=== PATIENT | female | born 1975 | race Two or more races ===

== ENCOUNTER 2017-11-16 16:56 | Inpatient (IN) | payer MEDICAID ==
[~2017-11-16] VITALS: Ht 167.6 cm; Wt 135.9 kg
[2017-11-16] MEDS ORDERED: PANTOPRAZOLE 40 MG/10 ML VIAL IV STA (17:23)
[2017-11-16] MEDS ORDERED: SODIUM CHLORIDE 0.9% 1,000 ML IVB ONE (17:23)
[2017-11-16] MEDS ORDERED: ONDANSETRON HCL 4 MG/2 ML VIAL IV ONE (17:30)
[2017-11-16] MEDS ORDERED: MORPHINE SULFATE 4 MG/ML SYR/VIAL IV ONE (17:30)
[2017-11-16 18:02] LABS: Basophils # (auto) 0 uL; Eosinophils # (auto) 0 uL; Eosinophils % (auto) 0.2 % (0.0-7.0); Lymphocytes # (auto) 1.1 uL; Monocytes # (auto) 0.5 uL
[2017-11-16 18:04] LABS: Basophils % (auto) 0.3 % (0.0-2.0); Hematocrit 31.9 % (36.0-46.0); Hemoglobin 9.8 g/dL (12.2-16.2); Lymphocytes % (auto) 7.9 % (10.0-50.0); Mean Corpuscular Hemoglobin 19.1 pg (28.0-32.0); Mean Corpuscular Hgb Conc. 30.6 g/dL (32.0-36.0); Mean Corpuscular Volume 62.4 fL (80.0-100.0); Monocytes % (auto) 3.4 % (0.0-12.0); Neutrophils % (auto) 88.2 % (37.0-80.0); Platelet Count (auto) 358 10^3/uL (140-450); Red Blood Cells 5.11 10^6/uL (4.0-5.20); Red Cell Distribution Width 18.6 % (11.8-14.3); White Blood Cell 13.6 10^3/uL (4.4-10.8)
[2017-11-16 18:21] LABS: Albumin 3.6 g/dL (3.4-5.0); BUN/Creatinine Ratio 28.8; Calcium 8.2 mg/dL (8.5-10.1); Magnesium 2.3 mg/dL (1.6-2.6); Potassium 3.7 mmol/L (3.5-5.1)
[2017-11-16 18:24] LABS: Bilirubin, Total 0.3 mg/dL (0.2-1.0); Total Protein 7.9 g/dL (6.4-8.2)
[2017-11-16 18:44] LABS: Urine Amorphous Crystal FEW /hpf (None Seen); Urine Bacteria NONE SEEN /hpf (None Seen); Urine Blood Negative /uL (Negative); Urine Mucus FEW (None Seen); Urine Specific Gravity 1.033 (1.001-1.035); Urine WBC 1 /hpf (0 - 5)
[2017-11-16] MEDS: SODIUM CHLORIDE 0.9% 1,000 ML IV SCH (18:49)
[2017-11-16] MEDS ORDERED: LORazepam 2MG/ML-1ML VIAL IV PRN (19:00)
[2017-11-16] MEDS ORDERED: NITROGLYCERIN 0.4 MG SL TAB SL PRN (19:00)
[2017-11-16] MEDS ORDERED: cefTRIAXone 1GM/10ml IVPUSH 10 ML IV ONE (19:00)
[2017-11-16] MEDS ORDERED: MORPHINE SULFATE 4 MG/ML SYR/VIAL IV PRN ×2 (19:00)
[2017-11-16] MEDS: FAMOTIDINE (10MG/ML) 2ML VL IV SCH (19:03)
[2017-11-16] MEDS: PROMETHAZINE HCL 25 MG/ML 1ML IV PRN (21:46)
[2017-11-16] MEDS: LABETALOL HCL 5 MG/ML ML 20ML VIAL IV PRN (21:47)
[2017-11-16] MEDS: MORPHINE SULFATE 4 MG/ML SYR/VIAL IV PRN (21:48)
[2017-11-17] MEDS: metroNIDAZOLE 500MG/100ML 100 ML IV SCH ×4 (00:30→17:54)
[2017-11-17] MEDS: LABETALOL HCL 5 MG/ML ML 20ML VIAL IV PRN (00:55)
[2017-11-17 05:00] VITALS: BP 149/72
[2017-11-17] MEDS: SODIUM CHLORIDE 0.9% 1,000 ML IV SCH ×2 (05:05→14:49)
[2017-11-17] MEDS: FAMOTIDINE (10MG/ML) 2ML VL IV SCH ×2 (05:05→19:26)
[2017-11-17] MEDS: MORPHINE SULFATE 4 MG/ML SYR/VIAL IV PRN ×3 (05:12→17:54)
[2017-11-17 05:57] LABS: Basophils # (auto) 0 uL; Basophils % (auto) 0.1 % (0.0-2.0); Eosinophils # (auto) 0 uL; Lymphocytes # (auto) 1.4 uL
[2017-11-17 05:59] LABS: Hematocrit 30.4 % (36.0-46.0); Hemoglobin 9.1 g/dL (12.2-16.2); Lymphocytes % (auto) 9.6 % (10.0-50.0); Mean Corpuscular Volume 63.3 fL (80.0-100.0); Monocytes # (auto) 1.1 uL; Monocytes % (auto) 7.4 % (0.0-12.0); Neutrophils # (auto) 11.9 uL; Neutrophils % (auto) 82.9 % (37.0-80.0); Platelet Count (auto) 346 10^3/uL (140-450); Red Cell Distribution Width 18.1 % (11.8-14.3); White Blood Cell 14.4 10^3/uL (4.4-10.8)
[2017-11-17 06:18] LABS: Albumin 3.2 g/dL (3.4-5.0); Amylase 38 U/L (25-115); BUN/Creatinine Ratio 27.1; Bilirubin, Total 0.4 mg/dL (0.2-1.0); Calcium 8.2 mg/dL (8.5-10.1); Cholesterol 135 mg/dL (< 200); HDL Cholesterol 46 mg/dL (40-59); LDL Cholesterol 85 mg/dL (< 100); Lipase 170 U/L (73-393); Potassium 3.9 mmol/L (3.5-5.1); Total Protein 7.5 g/dL (6.4-8.2); Triglycerides 103 mg/dL (< 150)
[2017-11-17 09:00] VITALS: BP 137/75
[2017-11-17] MEDS: PROMETHAZINE HCL 25 MG/ML 1ML IV PRN (10:01)
[2017-11-17] MEDS: cefTRIAXone 1GM/10ml IVPUSH 10 ML IV SCH (10:01)
[2017-11-17 13:00] VITALS: BP 141/79
[2017-11-17 17:00] VITALS: BP 159/85
[2017-11-17 20:00] VITALS: BP 111/54
[2017-11-18] MEDS: metroNIDAZOLE 500MG/100ML 100 ML IV SCH ×4 (00:08→18:22)
[2017-11-18] MEDS: SODIUM CHLORIDE 0.9% 1,000 ML IV SCH ×3 (00:56→20:49)
[2017-11-18 05:00] VITALS: BP 130/65
[2017-11-18 05:32] LABS: Basophils # (auto) 0 uL; Eosinophils # (auto) 0 uL; Eosinophils % (auto) 0.2 % (0.0-7.0); Monocytes # (auto) 1.8 uL; Neutrophils # (auto) 12.5 uL; Red Cell Distribution Width 18.3 % (11.8-14.3)
[2017-11-18 05:36] LABS: Basophils % (auto) 0.3 % (0.0-2.0); Hematocrit 29.1 % (36.0-46.0); Hemoglobin 8.8 g/dL (12.2-16.2); Mean Corpuscular Hemoglobin 18.7 pg (28.0-32.0); Mean Corpuscular Hgb Conc. 30.2 g/dL (32.0-36.0); Neutrophils % (auto) 76.5 % (37.0-80.0); Platelet Count (auto) 309 10^3/uL (140-450); White Blood Cell 16.4 10^3/uL (4.4-10.8)
[2017-11-18 05:56] LABS: BUN/Creatinine Ratio 8.6; Bilirubin, Total 0.5 mg/dL (0.2-1.0); Calcium 8.3 mg/dL (8.5-10.1); Potassium 3.4 mmol/L (3.5-5.1); Total Protein 7.3 g/dL (6.4-8.2)
[2017-11-18] MEDS: FAMOTIDINE (10MG/ML) 2ML VL IV SCH ×2 (06:32→18:22)
[2017-11-18 07:30] VITALS: BP 140/56
[2017-11-18 08:00] VITALS: BP 127/71
[2017-11-18] MEDS: cefTRIAXone 1GM/10ml IVPUSH 10 ML IV SCH (10:59)
[2017-11-18] MEDS ORDERED: POTASSIUM CHL 20MEQ/100ML 100 ML IV ONE (11:00)
[2017-11-18] MEDS: MORPHINE SULFATE 4 MG/ML SYR/VIAL IV PRN ×2 (11:02→21:45)
[2017-11-18 12:00] VITALS: BP 133/81
[2017-11-18] MEDS: PIPERACILLIN-TAZOB 3.375GM 50 ML IV SCH ×2 (12:00→18:22)
[2017-11-18 17:01] VITALS: BP 127/63
[2017-11-18 22:14] VITALS: BP 132/66
[2017-11-19] MEDS: metroNIDAZOLE 500MG/100ML 100 ML IV SCH ×3 (00:30→12:00)
[2017-11-19] MEDS: PIPERACILLIN-TAZOB 3.375GM 50 ML IV SCH ×6 (02:00→20:05)
[2017-11-19 05:29] VITALS: BP 125/53
[2017-11-19] MEDS: SODIUM CHLORIDE 0.9% 1,000 ML IV SCH ×2 (06:37→16:43)
[2017-11-19] MEDS: FAMOTIDINE (10MG/ML) 2ML VL IV SCH ×2 (06:42→18:24)
[2017-11-19 06:49] LABS: INR 1.05 (0.9-1.15); Prothrombin Time 11.5 sec (9.37-12.3)
[2017-11-19 08:00] VITALS: BP 113/48
[2017-11-19 08:03] VITALS: BP 113/48
[2017-11-19] MEDS ORDERED: ONDANSETRON HCL 4 MG/2 ML VIAL IV ONE (10:00)
[2017-11-19] MEDS ORDERED: NALOXONE HCL 0.4 MG/ML VIAL IV PRN (10:00)
[2017-11-19] MEDS ORDERED: LIDOCAINE 1% HCL (LOCAL ANESTH.) INJ 20ML MDV ONE (10:09)
[2017-11-19] MEDS ORDERED: SUCCINYLCHOLINE CHLORIDE 20 MG/ML 10ML VIAL IV ONE (10:10)
[2017-11-19] MEDS ORDERED: MIDAZOLAM HCL 1MG/1ML-2 ML VIAL ONE (10:11)
[2017-11-19] MEDS ORDERED: PROPOFOL 10 MG/ML 20 ML IV ONE (10:12)
[2017-11-19] MEDS ORDERED: ROCURONIUM 10MG/ML 10ML VIAL IV ONE (10:12)
[2017-11-19] MEDS ORDERED: METOCLOPRAMIDE HCL 5MG/ml INJ 2ml VIAL ONE (10:22)
[2017-11-19] MEDS ORDERED: fentaNYL CITRATE 100 MCG/2 ML VL ONE (10:32)
[2017-11-19] MEDS ORDERED: NEOSTIGMINE 1 MG/ML INJ (10mg/10ML VIAL) ONE (10:50)
[2017-11-19] MEDS ORDERED: GLYCOPYRROLATE 0.2 MG/ML 1ML VIAL ONE ×2 (10:50→12:22)
[2017-11-19 12:00] VITALS: BP 124/56
[2017-11-19] MEDS: MORPHINE SULFATE 4 MG/ML SYR/VIAL IV PRN ×6 (12:48→23:58)
[2017-11-19 17:09] VITALS: BP 126/60
[2017-11-19] MEDS: ACETAMINOPHEN 325 MG TAB PO PRN ×2 (17:18→22:05)
[2017-11-19 22:00] VITALS: BP 106/51
[2017-11-20] MEDS: PIPERACILLIN-TAZOB 3.375GM 50 ML IV SCH ×4 (01:56→20:30)
[2017-11-20] MEDS: SODIUM CHLORIDE 0.9% 1,000 ML IV SCH ×3 (02:18→22:05)
[2017-11-20] MEDS: MORPHINE SULFATE 4 MG/ML SYR/VIAL IV PRN ×5 (03:58→22:40)
[2017-11-20 05:23] VITALS: BP 123/73
[2017-11-20 06:30] LABS: Basophils # (auto) 0 uL; Basophils % (auto) 0.2 % (0.0-2.0); Eosinophils # (auto) 0 uL; Neutrophils # (auto) 10.7 uL; Red Cell Distribution Width 18.4 % (11.8-14.3); White Blood Cell 13.3 10^3/uL (4.4-10.8)
[2017-11-20] MEDS: FAMOTIDINE (10MG/ML) 2ML VL IV SCH ×2 (06:30→18:26)
[2017-11-20 06:34] LABS: Eosinophils % (auto) 0.2 % (0.0-7.0); Hematocrit 25.4 % (36.0-46.0); Hemoglobin 7.7 g/dL (12.2-16.2); Lymphocytes # (auto) 1.6 uL; Lymphocytes % (auto) 11.9 % (10.0-50.0); Mean Corpuscular Hemoglobin 18.9 pg (28.0-32.0); Mean Corpuscular Hgb Conc. 30.3 g/dL (32.0-36.0); Mean Corpuscular Volume 62.3 fL (80.0-100.0); Monocytes % (auto) 7.4 % (0.0-12.0); Neutrophils % (auto) 80.3 % (37.0-80.0); Platelet Count (auto) 325 10^3/uL (140-450); Red Blood Cells 4.07 10^6/uL (4.0-5.20)
[2017-11-20 07:00] LABS: Albumin 2.3 g/dL (3.4-5.0); Bilirubin, Direct 0.3 mg/dL (0-0.2); Bilirubin, Total 0.7 mg/dL (0.2-1.0); Total Protein 6.4 g/dL (6.4-8.2)
[2017-11-20 07:15] LABS: Calcium 7.4 mg/dL (8.5-10.1)
[2017-11-20 07:22] LABS: Potassium 2.8 mmol/L (3.5-5.1)
[2017-11-20 08:00] VITALS: BP 128/59
[2017-11-20] MEDS: PROMETHAZINE HCL 25 MG/ML 1ML IV PRN ×4 (08:59→22:32)
[2017-11-20] MEDS ORDERED: POTASSIUM CHL 10% (20 MEQ/15ML) 15ml ORAL SOLN GT SCH (10:45)
[2017-11-20] MEDS: POTASSIUM CHL 10% (20 MEQ/15ML) 15ml ORAL SOLN PO SCH ×2 (11:31→22:18)
[2017-11-20 12:11] VITALS: BP 139/61
[2017-11-20 16:14] VITALS: BP 117/56
[2017-11-20 20:00] VITALS: BP 119/55
[2017-11-20 22:00] VITALS: BP 119/55
[2017-11-21] MEDS: PIPERACILLIN-TAZOB 3.375GM 50 ML IV SCH ×4 (01:47→20:02)
[2017-11-21] MEDS: PROMETHAZINE HCL 25 MG/ML 1ML IV PRN (05:23)
[2017-11-21] MEDS: MORPHINE SULFATE 4 MG/ML SYR/VIAL IV PRN (05:23)
[2017-11-21 05:33] VITALS: BP 107/58
[2017-11-21] MEDS: FAMOTIDINE (10MG/ML) 2ML VL IV SCH ×2 (06:24→18:28)
[2017-11-21 06:26] LABS: Basophils # (auto) 0 uL; Eosinophils # (auto) 0.1 uL; Hematocrit 24.8 % (36.0-46.0); Hemoglobin 7.7 g/dL (12.2-16.2); Neutrophils # (auto) 7.7 uL; Red Blood Cells 3.97 10^6/uL (4.0-5.20)
[2017-11-21 06:29] LABS: Basophils % (auto) 0.2 % (0.0-2.0); Lymphocytes # (auto) 1.6 uL; Mean Corpuscular Hemoglobin 19.4 pg (28.0-32.0); Mean Corpuscular Hgb Conc. 31.1 g/dL (32.0-36.0); Mean Corpuscular Volume 62.4 fL (80.0-100.0); Monocytes # (auto) 0.9 uL; Neutrophils % (auto) 74.8 % (37.0-80.0); Platelet Count (auto) 385 10^3/uL (140-450); Red Cell Distribution Width 18.2 % (11.8-14.3); White Blood Cell 10.4 10^3/uL (4.4-10.8)
[2017-11-21 06:42] LABS: Calcium 7.8 mg/dL (8.5-10.1); Magnesium 2.2 mg/dL (1.6-2.6); Potassium 3.3 mmol/L (3.5-5.1)
[2017-11-21] MEDS: SODIUM CHLORIDE 0.9% 1,000 ML IV SCH ×2 (08:49→16:54)
[2017-11-21 09:00] VITALS: BP 112/61
[2017-11-21] MEDS: POTASSIUM CHL 10% (20 MEQ/15ML) 15ml ORAL SOLN PO SCH ×2 (10:05→22:11)
[2017-11-21 13:00] VITALS: BP 137/75
[2017-11-21 17:00] VITALS: BP_SYST 140; BP_SYST 142; BP_DIAS 66; BP_DIAS 70
[2017-11-21] MEDS: ACETAMINOPHEN 325 MG TAB PO PRN (17:29)
[2017-11-21 22:00] VITALS: BP 140/67
[2017-11-22] MEDS: MORPHINE SULFATE 4 MG/ML SYR/VIAL IV PRN (01:25)
[2017-11-22] MEDS: PIPERACILLIN-TAZOB 3.375GM 50 ML IV SCH ×2 (02:00→08:05)
[2017-11-22] MEDS: SODIUM CHLORIDE 0.9% 1,000 ML IV SCH (04:49)
[2017-11-22 05:00] VITALS: BP 125/72
[2017-11-22 05:48] LABS: Basophils # (auto) 0 uL; Eosinophils # (auto) 0.2 uL; Hemoglobin 7.6 g/dL (12.2-16.2); Lymphocytes # (auto) 1.9 uL; Monocytes # (auto) 0.7 uL; Platelet Count (auto) 367 10^3/uL (140-450)
[2017-11-22 05:50] LABS: Basophils % (auto) 0.3 % (0.0-2.0); Eosinophils % (auto) 2.7 % (0.0-7.0); Lymphocytes % (auto) 20.5 % (10.0-50.0); Mean Corpuscular Hgb Conc. 30.2 g/dL (32.0-36.0); Monocytes % (auto) 7.5 % (0.0-12.0); Neutrophils # (auto) 6.3 uL; Red Blood Cells 3.97 10^6/uL (4.0-5.20); Red Cell Distribution Width 18.1 % (11.8-14.3); White Blood Cell 9.2 10^3/uL (4.4-10.8)
[2017-11-22 06:00] LABS: BUN/Creatinine Ratio 10.4; Calcium 8.1 mg/dL (8.5-10.1); Potassium 3.9 mmol/L (3.5-5.1)
[2017-11-22] MEDS: FAMOTIDINE (10MG/ML) 2ML VL IV SCH (06:25)
[2017-11-22] MEDS: ACETAMINOPHEN 325 MG TAB PO PRN (06:25)
[2017-11-22 09:00] VITALS: BP 135/86
[2017-11-22 11:32] VITALS: BP 140/56
[2017-11-22 12:11] VITALS: BP 134/62
[2017-11-22 17:00] VITALS: BP 137/70
== END 2017-11-22 17:54 | disposition home or self-care (01) | DRG 263 ==
LOC: ER 17:07 → TELE 17:08 → TELE-CENTR 21:00
PROVIDERS: ADMIT Internal Medicine; ATTEND Internal Medicine
PROC: 0FT44ZZ Resection of Gallbladder, Percutaneous Endoscopic Approach (ICD-10-PCS; principal; 2017-11-19 10:19)
DX: K80.62 Calculus of gallbladder and bile duct with acute cholecystitis without obstruction (principal); R65.10 Systemic inflammatory response syndrome (SIRS) of non-infectious origin without acute organ dysfunction; E83.51 Hypocalcemia; E44.1 Mild protein-calorie malnutrition; Z68.42 Body mass index [BMI] 45.0-49.9, adult; I10 Essential (primary) hypertension; E87.6 Hypokalemia; E66.9 Obesity, unspecified; E66.01 Morbid (severe) obesity due to excess calories; R10.13 Epigastric pain; D50.0 Iron deficiency anemia secondary to blood loss (chronic); Z82.49 Family history of ischemic heart disease and other diseases of the circulatory system; Z83.3 Family history of diabetes mellitus; Z71.3 Dietary counseling and surveillance
CPT/HCPCS: 36415; 76705; 78226; 80048; 80053; 80061; 80076; 81001; 82150; 82247; 82962; 83690; 83735; 84702; 85025; 85610; 85730; 86850; 86900; 86901; 87040; 87070; 87075; 87077; 87186; 87205; 93005; 94761; 96374; 96375; C9113; J0330; J2001; J2250; J2405; J2543; J2704; J3480; J3490